=== PATIENT | male | born 1970 | race Caucasian/White ===

== ENCOUNTER 2020-05-17 23:45 | Emergency (ER) | payer MEDICAID ==
[~2020-05-17] VITALS: Ht 162.6 cm; Wt 78.9 kg
[2020-05-17] MEDS ORDERED: LIDOCAINE HCL/MPF 1% 30 ML VIAL IJ ONE (23:52)
[2020-05-18] MEDS ORDERED: TDAP [DIPH/PERTUSSIS/TET] 0.5 ML VIAL IM ONE (00:05)
[2020-05-18] MEDS: TDAP [DIPH/PERTUSSIS/TET] 0.5 ML VIAL IM ONE (00:16)
--- NOTE | 2020-05-18 01:30 | NUR ---
[facility] ETA 45 MINUTES
--- NOTE | 2020-05-18 01:34 | NUR ---
REPORT GIVEN TO POLLY TOVAR PT WILL RETURN BACK TO [facility].
--- NOTE | 2020-05-18 02:12 | NUR ---
REPORT GIVEN TO [facility] FOR TRANSPORTATION [place]
[2020-05-18 02:16] VITALS: BP 150/78
== END 2020-05-18 02:16 | disposition short-term general hospital (02) ==
LOC: ER 23:45
DX: S51.812A Laceration without foreign body of left forearm, initial encounter (principal); Y04.8XXA Assault by other bodily force, initial encounter; Y93.89 Activity, other specified; Y92.89 Other specified places as the place of occurrence of the external cause; Y99.8 Other external cause status
CPT/HCPCS: 12002; 73090; 90471; 90715; 99283; A6403; J3490

== ENCOUNTER 2020-05-31 13:28 | Emergency (ER) | payer MEDICAID ==
[~2020-05-31] VITALS: Ht 162.6 cm; Wt 78.9 kg
--- NOTE | 2020-05-31 14:09 | NUR ---
PT SELF PRESENTS TO ED. C/O DEPRESSION AND SUICIDAL IDEATION W/ + PLAN STATING "SUICIDE BY LATHE SPOTTER." DENIES ANY OTHER COMPLAIN AT THIS TIME. DENIES ANY SOB OR FLU LIKE SYPTOMS. AFEBRILE CONSTRUCTION PROJECT COORDINATOR. SITTER ASSIGNED. AWAITING MD SOLOMON.
--- NOTE | 2020-05-31 15:17 | NUR ---
Inverform Machine Operator met with patient today to complete a psychosocial assessment. Reason for assessment is patient is homeless and patient presents himself to [facility] ED for suicidal ideation. Patient is alert and oriented x4. Patient is a 49 year-old male. Patient reports he has been homeless for 3 years, patient reported that he had been staying in his car up until 4 months ago when his car was impounded. SW and patient discussed the need for homeless community resources and patient was receptive to these resources. Patient reported that his current suicidal ideation is "suicide by surveillance technician". Patient reports having suicidal thoughts since 1986 when he was first diagnosed with Schizophrenia and Bipolar disorder. Patient reports he has not taken his psychiatric medications in one month. Patient does report the use of alcohol, marijuana, and cigarettes. Patient provided some personal belongings to this SW for safe keeping, SW informed patient that this SW would have plant technician/control room operator Trevin place these additional items in ED lockers for safe keeping. Patient understood and was agreeable. Patient was calm and cooperative throughout this assessment. Patient requested a sandwich and something to drink. SW informed patient that this SW would provide this to the patient following this assessment and patient thanked this SW. Patient's speech is clear. Patient is able to make needs known. SW had patient sign homeless patient waiver form and SW placed a copy in patient's chart. Plan: SW to refer patient to [facility]. SW to fax clinicals to [facility] Intake [phone] when patient is medically cleared. SW to provide patient food. SW remains available for all needs regarding this patient.
--- NOTE | 2020-05-31 15:29 | NUR ---
SW had patient sign homeless patient waiver form and SW placed a copy in patient's chart. SW provided the following resources to the patient Winter Shelters: [facility] [place] [facility] [address] [place] [address] ; [employer] [place] [facility] [employer] [address], [address] ; [facility] [place]* [facility] ; [facility] [place] [facility] [address] [place] [address] ; [facility] [facility] [place] [address], [address] ; [facility] [address] [facility] [address] ; First To Serve* [facility] [address] [facility], [address] ; [facility] [address], [address] ; [facility] [address] [facility], [address] ; [facility] [address], [address] ; [facility] [address] [facility], [address] ; [facility] [address], [phone] ; [facility] [address] [place] [address] [address] , [address] ; [facility] [place] * Library [address] [address] Hygiene: [place] [facility]: [address] [place] ; [place] [facility] [address] [facility] ; [facility] [address] . Food Resources: [place] [facility] at [facility]- [address] [place]; Meet Each Need with [facility]ign[facility] ([facility]) [address] [place]; [facility] [facility]; [facility] [address] [place]. Mental Health resources provided: [facility] [address] [place] [address] ; [facility] [address] [facility] [address], [place], [place] [id number] ; [facility] Mental [facility] [address] [place], [place] [phone] ; [facility] [address] [place], [place] [phone] Healthcare Clinics: [facility] [address], [address] [place]. [place] ; [facility] [address] [facility] [address] [place] [address]; [facility] [address] [facility]. [place] [phone] Substance Abuse resources provided included: [facility] Substance Abuse Self-Helpline (SAS) ; [facility] [address] [facility]. [place] [phone] ; [facility] [address] [facility] [address] ; [facility] [address] [place] [facility] [phone] ; [facility] [address] [facility] [phone] ; [facility] [address] [place] [facility] [phone] ; [facility] [address] [facility] [phone] ;
--- NOTE | 2020-05-31 15:31 | NUR ---
FABIENNE with assistance of mathematical engineering technician Trevin provided patient a sandwich and a Gatorade to the patient.
--- NOTE | 2020-05-31 15:32 | NUR ---
guitar technician Trevin placed patient's personal belongings in ED locker for safe keeping. SW remains available for all needs regarding this patient.
--- NOTE | 2020-05-31 16:32 | NUR ---
GORDON CLEANING AT BEDSIDE FOR EVAL.
--- NOTE | 2020-05-31 16:56 | NUR ---
FABIENNE notified Fabrice [phone] at [facility] regarding this referral. Per Fabrice, fax clinicals at this time and refax clinicals when lab results return. Plan: ED staff to fax lab results to [facility] [phone] (fax)
--- NOTE | 2020-05-31 16:58 | NUR ---
FABIENNE faxed clinicals to [facility] [phone]. Plan: ED Staff to fax lab results to [facility] [phone]
[2020-05-31 17:03] LABS: BILIRUBIN,URINE Negative (NEGATIVE); COLOR,URINE YELLOW (YELLOW); LEUKOCYTE ESTERASE ,URINE Trace (NEGATIVE); NITRITE, URINE Negative (NEGATIVE); PH,URINE 5.5 (5.0-8.0); PROTEIN,URINE Negative (NEGATIVE); UGLUCOSE Negative (NEGATIVE); UROBILINOGEN,URINE 0.2 EU/dL (0.2)
[2020-05-31 17:13] LABS: BASOPHILS % (AUTO) 0.6 % (0.0-2.0); EOSINOPHILS % (AUTO) 0.9 % (0.0-6.0); HEMATOCRIT 39 % (39-51); LYMPHOCYTES # (AUTO) 1.2 /CMM (0.8-4.8); LYMPHOCYTES % (AUTO) 16.3 % (20.0-44.0); MEAN CORPUSCULAR HGB CONC 33 g/dl (31.0-36.0); MEAN CORPUSCULAR VOLUME 88 fL (80-96); MONOCYTES # (AUTO) 0.5 /CMM (0.1-1.30); MONOCYTES % (AUTO) 7.1 % (2.0-12.0); NEUTROPHILS # (AUTO) 5.4 /CMM (1.8-8.9); NEUTROPHILS % (AUTO) 75.1 % (43.0-81.0); PLATELET COUNT (AUTO) 334 /CMM (150-450); RED BLOOD CELL COUNT(AUTO) 4.44 MIL/uL (4.5-6.0); WHITE BLOOD COUNT (AUTO) 7.2 K/uL (4.3-11.0)
[2020-05-31 17:19] LABS: CALCIUM, SERUM 8.9 mg/dL (8.5-10.1); CARBON DIOXIDE 29 mmol/L (21-32); CHLORIDE 105 mmol/L (98-107); CREATININE 1.1 mg/dL (0.6-1.3); GLUCOSE 108 mg/dL (74-106); POTASSIUM 4.3 mmol/L (3.5-5.1); SODIUM SERUM 139 mmol/L (136-145); UREA NITROGEN, BLOOD 13 mg/dL (7-18)
[2020-05-31 17:25] LABS: ALANINE AMINOTRANSFERASE 24 U/L (12-78); ALBUMIN 3.3 g/dL (3.4-5.0); ALCOHOL, BLOOD < 3 mg/dL (0-0); ALKALINE PHOSPHATASE 60 U/L (46-116); ASPARTATE AMINOTRANSFERASE 26 U/L (15-37); BILIRUBIN,DIRECT 0.1 mg/dL (0.0-0.2); BILIRUBIN,TOTAL 0.4 mg/dL (0.2-1.0); TOTAL PROTEIN, SERUM 7.2 g/dL (6.4-8.2)
[2020-05-31 17:27] LABS: BACTERIA,URINE Few /HPF (None Seen); SQUAMOUS EPITHELIAL CELL,UR Few /HPF (None Seen)
[2020-05-31 17:28] LABS: ACETAMINOPHEN < 2 ug/ml (10-30)
--- NOTE | 2020-05-31 18:49 | NUR ---
FAXED PERTINENT PAPERWORK TO [facility]. WAITING FOR CALL BACK.
--- NOTE | 2020-05-31 18:50 | NUR ---
CLINICALS [facility].
--- NOTE | 2020-05-31 19:40 | NUR ---
TRANSFER INFORMATION: PT ACCEPTED TO [facility] ACCEPTING MD: DR. ROSARIO NUMBER FOR REPORT: [phone]
--- NOTE | 2020-05-31 20:02 | NUR ---
[facility] ETA 2034
--- NOTE | 2020-05-31 20:15 | NUR ---
REPORT GIVEN TO NAY MALAGON FROM [facility] FOR [place]
--- NOTE | 2020-05-31 20:45 | NUR ---
REPORT GIVEN TO EMT. PT TRANSFERED.
[2020-05-31 20:46] VITALS: BP 145/83
== END 2020-05-31 20:47 ==
LOC: ER 13:35
DX: R45.851 Suicidal ideations (principal); Z20.822 Contact with and (suspected) exposure to COVID-19; S51.812D Laceration without foreign body of left forearm, subsequent encounter; X58.XXXD Exposure to other specified factors, subsequent encounter; F31.9 Bipolar disorder, unspecified; F20.9 Schizophrenia, unspecified; D64.9 Anemia, unspecified; R78.4 Finding of other drugs of addictive potential in blood; Z59.0 Homelessness
CPT/HCPCS: 36415; 80048; 80076; 80299; 80307; 80320; 81001; 85025; 87426; 99285; C9803; G0480